=== PATIENT | female | born 1990 | race Caucasian/White ===

== ENCOUNTER 2025-06-20 18:59 | Emergency (ER) | payer SELFPAY ==
[2025-06-20] MEDS ORDERED: HYDROCODONE/APAP 5/325 MG TAB ONE (19:17)
[2025-06-20] MEDS ORDERED: KETOROLAC 30 MG/ML INJ ONE (20:28)
--- NOTE | 2025-06-20 20:47 | RAD REPORT ---
EXAMINATION: ONE VIEW CHEST XR CLINICAL INDICATION: Female, 35 years old.,RIB PAIN - RIGHT TECHNIQUE: Frontal chest projection is submitted. Examination is limited by patient positioning and t echnique. COMPARISON: 04/05/2025. FINDINGS: The lungs are well inflated and clear. No pneumothorax or sizable effusion. The heart is normal in s ize. Mediastinal contours are unremarkable. IMPRESSION: No acute intrathoracic abnormalities.
--- NOTE | 2025-06-20 21:24 | RAD REPORT ---
EXAMINATION: Ribs Right INDICATION: RIB PAIN - RIGHT COMPARISON: None TECHNIQUE: Frontal and multiple oblique views of the left rib cage. FINDINGS: Included portions of the chest reveal clear lungs. There is no effusion or pneumothorax. Mediastinal contours are within normal limits. Mildly displaced right seventh, eighth, ninth, and 10th rib fractures. No suspicious focal osseous le sabas.. IMPRESSION: Mildly displaced right seventh through 10th rib fractures.
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
[2025-06-20 22:11] VITALS: TEMP 98.1; O2SAT 100
[2025-06-20 22:15] VITALS: BP 127/92
== END 2025-06-20 21:45 | disposition home or self-care (01) ==
LOC: ER 18:59
DX: S22.41XA Multiple fractures of ribs, right side, initial encounter for closed fracture (principal); F17.210 Nicotine dependence, cigarettes, uncomplicated; Y04.2XXA Assault by strike against or bumped into by another person, initial encounter; Y93.9 Activity, unspecified; Y92.9 Unspecified place or not applicable
CPT/HCPCS: 71045; 96372; 99284; J1885